=== PATIENT | female | born 1995 | race Caucasian/White ===

== ENCOUNTER 2020-05-24 17:41 | Emergency (ER) | payer OTHER ==
[~2020-05-24] VITALS: Ht 170.2 cm; Wt 142.9 kg
[2020-05-24] MEDS ORDERED: FLUOXETINE HCL10 MG (18:43)
== END 2020-05-24 19:33 | disposition home or self-care (01) ==
LOC: ED 17:41
DX: S00.35XA Superficial foreign body of nose, initial encounter (principal); Z88.6 Allergy status to analgesic agent; Z88.8 Allergy status to other drugs, medicaments and biological substances; W45.8XXA Other foreign body or object entering through skin, initial encounter
CPT/HCPCS: 99282

== ENCOUNTER → 2020-07-30 | Emergency (ER) | payer OTHER ==
[~2020-07-30] VITALS: Ht 170.2 cm; Wt 142.9 kg
[~2020-07-30] MED LIST: FLUOXETINE HCL10 MG; HYDROXYZINE HCL50 MG PO
== END ==
LOC: ED 01:39
DX: L73.1 Pseudofolliculitis barbae (principal); Z91.040 Latex allergy status; Z88.8 Allergy status to other drugs, medicaments and biological substances; Z88.5 Allergy status to narcotic agent; Z79.899 Other long term (current) drug therapy
CPT/HCPCS: 99282

== ENCOUNTER 2021-08-08 16:40 | Emergency (ER) | payer OTHER ==
[~2021-08-08] VITALS: Ht 170.2 cm; Wt 171.9 kg
== END 2021-08-08 18:07 | disposition home or self-care (01) ==
LOC: ED 16:40
DX: S93.401A Sprain of unspecified ligament of right ankle, initial encounter (principal); W18.42XA Slipping, tripping and stumbling without falling due to stepping into hole or opening, initial encounter; Z88.5 Allergy status to narcotic agent
CPT/HCPCS: 73590; 73610; 99283-25

== ENCOUNTER 2022-04-03 12:55 | Emergency (ER) | payer OTHER ==
[~2022-04-03] VITALS: Ht 170.2 cm; Wt 171.9 kg
== END 2022-04-03 17:35 | disposition home or self-care (01) ==
LOC: ED 12:55
DX: R10.9 Unspecified abdominal pain (principal); M54.9 Dorsalgia, unspecified; Z88.5 Allergy status to narcotic agent
CPT/HCPCS: 36415; 80053; 81001; 84703; 85025